=== PATIENT | female | born 1990 | race African-American/Black ===

== ENCOUNTER 2019-01-27 21:28 | Emergency (ER) | payer OTHER ==
[2019-01-27 21:46] VITALS: BP 99/72; PULSE 76; TEMP 97.8; BMI 22.8
--- NOTE | 2019-01-27 22:06 | PDOC ---
History of Present Illness - General Chief Complaint: Pain Stated Complaint: RIGHT ANKLE PAIN History Source: Patient Exam Limitations: No Limitations - History of Present Illness Initial Comments: 01/27/19 22:02 Patient is a 26-year-old female with history of Bartholin's cystectomy complaining of right ankle pain [employer]ER CARD ROOM. Patient states she was putting volleyball in the park and twisted her ankle and went down on her knee. Now has pain 9/10 worse with movement, unable to ambulate on her leg. PMD: Dr. Schroeder PMHX: Above PSOCHX: neg cig, drug, etoh ALL: NKDA GENERAL/CONSTITUTIONAL: No fever or chills. No weakness. No weight change. HEAD, EYES, EARS, NOSE AND THROAT: No change in vision. No ear pain or discharge. No sore throat. CARDIOVASCULAR: No chest pain or shortness of breath. RESPIRATORY: No cough, wheezing, or hemoptysis. GASTROINTESTINAL: No nausea, vomiting, diarrhea or constipation. No rectal bleeding. GENITOURINARY: No dysuria, frequency, or change in urination. MUSCULOSKELETAL: (+) joint or muscle swelling or pain. No neck or back pain. SKIN AND BREASTS: No rash or easy bruising. NEUROLOGIC: No headache, vertigo, loss of consciousness, or loss of sensation. PSYCHIATRIC: No depression or anxiety. ENDOCRINE: No increased thirst. No abnormal weight change. HEMATOLOGIC/LYMPHATIC: No anemia, easy bleeding, or history of blood clots. ALLERGIC/IMMUNOLOGIC: No hives or skin allergy. No latex allergy. GENERAL: The patient is awake, alert, and fully oriented, in no acute distress. HEAD: Normal with no signs of trauma. EYES: Pupils equal, round and reactive to light, extraocular movements intact, sclera anicteric, conjunctiva clear. ENT: Ears normal, nares patent, oropharynx clear without exudates. Moist mucous membranes. NECK: Normal range of motion, supple without lymphadenopathy, JVD, or masses. LUNGS: Breath sounds equal, clear to auscultation bilaterally. No wheezes, and no crackles. HEART: Regular rate and rhythm, normal S1 and S2 without murmur, rub. ABDOMEN: Soft, nontender, normoactive bowel sounds. No guarding, no rebound. No masses. EXTREMITIES: Decreased range of motion right ankle with tenderness over the lateral malleolus, mild edema. No clubbing or cyanosis. No cords, erythema, or tenderness, pulses are intact. NEUROLOGICAL: Cranial nerves II through XII grossly intact. Normal speech, normal gait. PSYCH: Normal mood, normal affect. SKIN: Warm, Dry, normal turgor, no rashes or lesions noted. Past History - Past Medical History Allergies/Adverse Reactions: Allergies Allergy/AdvReac Type Severity Reaction Status Date / Time No Known Allergies Allergy Verified 12/09/15 18:29 Home Medications: Ambulatory Orders Cyclobenzaprine HCl [Flexeril -] 10 mg PO HS #7 tablet 12/11/15 Ondansetron [Zofran Odt -] 4 mg SL TID #12 od.tablet 12/11/15 Asthma: No Cancer: No Cardiac Disorders: No Diabetes: No HTN: No Seizures: No Thyroid Disease: No - Suicide/Smoking/Psychosocial Hx Smoking History: Never smoked Have you smoked in the past 12 months: No Hx Alcohol Use: No Drug/Substance Use Hx: No Substance Use Type: None Hx Substance Use Treatment: No *Physical Exam - Vital Signs Last Vital Signs Temp Pulse Resp BP Pulse Ox 97.8 F 76 19 99/72 100 01/27/19 21:43 01/27/19 21:43 01/27/19 21:43 01/27/19 21:43 01/27/19 21:43 Procedures - Splinting Splint Location: Right: Ankle Pre-Proc Neuro Vasc Exam: normal Hand-Made Type: orthoglass Splint Type: Yes: Sugar Tong, Posterior Post-Proc Neuro Vasc Exam: normal Isaac Bandage: 6" Sling: No Complications: No Post splint xray: No Good repositioning: Yes ED Treatment Course - RADIOLOGY Radiology Studies Ordered: Category Date Time Status ANKLE & FOOT-RIGHT* [RAD] Stat Radiology 01/27/19 22:01 Ordered Medical Decision Making - Medical Decision Making 01/27/19 22:02 Patient is a 26-year-old female with history of Bartholin's cystectomy complaining of right ankle pain [employer] RO[employer]. Patient states she was putting volleyball in the park and twisted her ankle and went down on her knee. Now has pain 9/10 worse with movement, unable to ambulate on her leg. Pain meds offered symptoms consistent with ankle sprain versus fracture. Pain meds offered but declined at this time. Right ankle 01/28/19 01:03 Patient Full Name: SUREKHA SHINE Patient Accession No: [id number] Patient : 1990 Reason for Exam: FX Referring Physician: Patient Name: FÁTIMA IRBY THIS IS A PRELIMINARY REPORT FROM [facility] DATE OF SERVICE: 2019-01-27 22:04:53 IMAGES: 5 EXAM: X-RAY RIGHT ANKLE AND FOOT No acute fracture or dislocation. No radiopaque foreign body. THIS DOCUMENT HAS BEEN ELECTRONICALLY SIGNED Nina Johnston M.D. 01/28/2019 00:55 EST M.D. Please call [facility] [phone]) with questions. INTERPRETING RADIOLOGIST: Nina Johnston MD Electronically Signed: Jan 28, 2019 12:56AM EDT Patient Full Name: SUREKHA SHINE Patient Accession No: [id number] Patient : 1990 Reason for Exam: FX Referring Physician: Patient Name: FÁTIMA IRBY THIS IS A PRELIMINARY REPORT FROM [facility] DATE OF SERVICE: 2019-01-27 23:08:35 IMAGES: 4 EXAM: X-RAY RIGHT KNEE No acute fracture or dislocation. No radiopaque foreign body. THIS DOCUMENT HAS BEEN ELECTRONICALLY SIGNED Nina Johnsotn M.D. 01/28/2019 00:54 EST M.D. Please call [facility] [phone] with questions. INTERPRETING RADIOLOGIST: Nina Johnston MD Electronically Signed: Jan 28, 2019 12:55AM EDT Posterior splint applied 01/28/19 01:15 01/28/19 01:17 I discussed the physical exam findings, ancillary test results and final diagnoses with the patient. I answered all of the patient's questions. The patient was satisfied with the care received and felt comfortable with the discharge plan and treatment plan. The Patient agrees to follow up with the primary care physician within 24-72 hours. *DC/Admit/Observation/Transfer Diagnosis at time of Disposition: Ankle sprain Qualifiers: Encounter type: initial encounter Involved ligament of ankle: other ligament Laterality: right Qualified Code(s): S93.491A - Sprain of other ligament of right ankle, initial encounter - Discharge Dispostion Disposition: HOME Condition at time of disposition: Stable - Referrals Referrals: Zia Schroeder [Primary Care Provider] - Dago Weinstein MD [Staff Physician] - - Patient Instructions Printed Discharge Instructions: DI for Ankle Sprain Additional Instructions: Your Discharge Instructions: You must call primary care physician within 24 hours to arrange follow-up. Return to the Emergency Department with any new, persistent or worsening symptoms, for fever, chills, SOB, dizziness or any other concerning changes that may occur. Follow with orthopedics within a week you must keep the splint on until seen. - Post Discharge Activity Forms/Work/School Notes: Back to Work
== END 2019-01-27 22:00 | disposition home or self-care (01) ==
LOC: JERFT 21:28 → JER 21:28 → JERFT 22:00
PROC: 2W3QX1Z Immobilization of Right Lower Leg using Splint (ICD-10-PCS; principal; 2019-01-27)
DX: S93.491A Sprain of other ligament of right ankle, initial encounter (principal); W18.39XA Other fall on same level, initial encounter; Y93.68 Activity, volleyball (beach) (court); Y92.830 Public park as the place of occurrence of the external cause; Y99.8 Other external cause status
CPT/HCPCS: 73564-TC-RT-FY; 73610-TC-RT-FY; 73630-TC-RT-FY; 99281-25

== ENCOUNTER 2019-05-05 21:20 | Emergency (ER) | payer OTHER ==
--- NOTE | 2019-05-05 21:47 | PDOC ---
History of Present Illness - General Stated Complaint: PASSED OUT Time Seen by Provider: 05/05/19 21:24 History Source: Patient Exam Limitations: No Limitations - History of Present Illness Initial Comments: 05/05/19 21:47 Berlin Garcia is an otherwise healthy 29F presenting with a syncopal episode. 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 Was caught by mother in kitchen, did not hit head or have any injuries, was unresponsive for 5-10 minutes. First time this has happened, denies any personal or family history of cardiac issues. Has history of migraines, currently has YANES consistent with this, took an excedrin which is her normal management and it did not help. Reports dizziness and nausea and is unable to stand without assistance. Reports some abd pain as well, no vomiting. Denies chest pain, SOB, urinary sx, C/D, pain in extremities. NKDA No meds taken PSH Bartholin gland cyst excision x2 Denies alcohol/tobacco/drug use Past History - Past Medical History Allergies/Adverse Reactions: Allergies Allergy/AdvReac Type Severity Reaction Status Date / Time No Known Allergies Allergy Verified 05/05/19 22:02 Home Medications: Ambulatory Orders Cyclobenzaprine HCl [Flexeril -] 10 mg PO HS #7 tablet 12/11/15 Ondansetron [Zofran Odt -] 4 mg SL TID #12 od.tablet 12/11/15 Asthma: No Cancer: No Cardiac Disorders: No Diabetes: No HTN: No Seizures: No Thyroid Disease: No - Psycho Social/Smoking Cessation Hx Smoking History: Never smoked Have you smoked in the past 12 months: No Hx Alcohol Use: No Drug/Substance Use Hx: No Substance Use Type: None Hx Substance Use Treatment: No Review of Systems - Review of Systems Constitutional: Yes: Weakness. No: Chills, Fever HEENTM: No: Blurred Vision, Recent change in vision, Hearing Loss, Throat Pain Respiratory: No: Cough, Shortness of Breath, Wheezing Cardiac (ROS): Yes: Lightheadedness, Palpitations, Syncope. No: Chest Pain, Edema ABD/GI: Yes: Nausea. No: Constipated, Diarrhea, Vomiting : No: Burning, Dysuria, Discharge, Frequency, Flank Pain, Hematuria, Incontinence, Pain Musculoskeletal: Yes: Neck Pain (says she has neck pain with migraines). No: Back Pain Neurological: Yes: Headache, Unsteady Gait, Dizziness. No: Numbness, Paresthesia, Seizure, Tingling, Weakness Endocrine: No: Symptoms Reported Hematologic/Lymphatic: No: Symptoms Reported All Other Systems: Reviewed and Negative *Physical Exam - Physical Exam General Appearance: Yes: Nourished, Appropriately Dressed, Other (appears tired and sleepy). No: Apparent Distress HEENT: positive: EOMI, CATHI, Normal ENT Inspection, Normal Voice, Pharynx Normal. negative: Scleral Icterus (R), Scleral Icterus (L), Muffled/Hoarse voice Neck: positive: Trachea midline, Normal Thyroid, Supple. negative: Tender ( palpation of lower neck into shoulders does not elicit further pain), Rigid, Decreased range of motion, Lymphadenopathy (R), Lymphadenopathy (L) Respiratory/Chest: positive: Lungs Clear, Normal Breath Sounds. negative: Chest Tender, Respiratory Distress, Crackles, Rales, Rhonchi Cardiovascular: positive: Regular Rhythm, Regular Rate. negative: Murmur Gastrointestinal/Abdominal: positive: Normal Bowel Sounds, Tender (tender to palpation all quadrants), Flat, Soft. negative: Organomegaly, Pulsatile Mass, Distended, Guarding, Hernia Musculoskeletal: positive: Normal Inspection. negative: CVA Tenderness Extremity: positive: Normal Capillary Refill, Normal Inspection, Normal Range of Motion. negative: Tender Integumentary: positive: Normal Color, Dry, Warm Neurologic: positive: bit sharpener II-XII NML intact, Fully Oriented, Alert, Normal Mood/ Affect, Normal Response, Motor Strength 5/5, Other (CN 2-12 all intact, sensation equal and intact to LT all extremities, spontaneously moving all limbs , 5/5 strength all extremity muscle groups). negative: Numbness, Sensory Deficit, Confused ED Treatment Course - LABORATORY CBC & Chemistry Diagram: 05/05/19 22:35 05/05/19 22:35 Medical Decision Making - Medical Decision Making 05/05/19 21:47 Berlin Garcia is an otherwise healthy 29F presenting with a syncopal episode. Patient presentation is most concerning for a cardiac etiology for syncope given palpitations felt before syncope. Neuro etiology such as sz less likely but in differential, includes ICH vs. mass vs. vascular etiology. Patient works nights and reports exhaustion, is dehydrated on skin exam for IV placement and IV access difficult, most likely contributing factor to syncope. Will evaluate via: ECG CBC CMP CP serum preg UA/UC CXR CT head given new onset syncopal episode ECG reveals NSR, HR 70, QTc 453. Has new onset T wave inversion in V2. Likely needs tele/obs for further cardiac workup. 05/05/19 23:41 Patient advised that new ECG finding is abnormal and warrants further cardiac workup. Patient and family want to leave, advised that to do so would be against medical advice. Discussion at the bedside with patient and family. Patient has capacity to make medical decisions. I believe this patient is of sound mind and competent to refuse medical care. The patient is responding and asking questions appropriately. The patient is oriented to person, place and time. The patient is not psychotic, delusional, suicidal, homicidal or hallucinating. The patient demonstrates a normal mental capacity to make decisions regarding their healthcare. The patient is clinically sober and does not appear to be under the influence of any illicit drugs at this time. The patient has been advised of the risks, in layman terms, of leaving AMA which include, but are not limited to cardiac arrest, dehydration, bleeding, myocardial infarction, arrhythmia, stroke, delay in diagnosis and management, loss of current lifestyle, loss of functional status, multiorgan failure, coma, severe disability and . Alternatives have been offered - the patient remains steadfast in their wish to leave. The patient has been advised that should they change their mind they are welcome to return to this hospital, or any other, at any time. The patient understands that in no way does an AMA discharge mean that I do not want them to have the best medical care available. To this end, I have provided appropriate prescriptions, referrals, and discharge instructions. Said she would reconsider in the next hour. 05/06/19 00:22 CT head shows no acute intracranial abnormalities, masses, hemorrhage. 05/06/19 00:28 Patient wants to AMA. Gave strict return precautions and cards f/u. Currently stable and has all labs and studies WNL save for V2 T wave inversion on ECG. HEART score <3, stable for outpatient f/u, but our recommendation still for observation overnight. Discharge - Discharge Information Problems reviewed: Yes Clinical Impression/Diagnosis: Syncope and collapse Headache Qualifiers: Headache type: unspecified Headache chronicity pattern: acute headache Intractability: not intractable Qualified Code(s): R51 - Headache Condition: Stable - Follow up/Referral Referrals: Remi Andino MD [Staff Physician] - Hussain Glass MD [Staff Physician] - - Patient Discharge Instructions Patient Printed Discharge Instructions: DI for Syncope in Adults (Fainting) Additional Instructions: Today you were evaluated for a fainting episode. We got blood labs that do no show any signs of infection, heart attack, or electrolyte abnormalities. We gave you some IV fluids, Tylenol, and a medication called Reglan for your headache and nausea that gave you some relief. Your ECG shows an abnormality that cannot be explained given your normal blood labs, and we were concerned enough to recommend admission to the hospital overnight for more evaluation of your heart. However, you did not wish to stay, and are leaving against medical advice. We believe you are responding and asking questions appropriately. You are oriented to person, place and time. You are not psychotic, delusional, suicidal , homicidal or hallucinating. You demonstrate a normal mental capacity to make decisions regarding their healthcare. You are clinically sober and does not appear to be under the influence of any illicit drugs at this time. You have been advised of the risks, in layman terms, of leaving AMA which include, but are not limited to cardiac arrest, dehydration, bleeding, myocardial infarction , arrhythmia, stroke, delay in diagnosis and management, loss of current lifestyle, loss of functional status, multiorgan failure, coma, severe disability and . Alternatives have been offered - you remain steadfast in you wish to leave. You have been advised that should they change their mind they are welcome to return to this hospital, or any other, at any time. You understand that in no way does an AMA discharge mean that we do not want you to have the best medical care available. Please follow-up with your primary doctor in the next 3 days. We have included a referral to see a associate entertainment editor, please see them in the next week after discharge from the hospital. If you experience further episodes of fainting, chest pain, palpitations, fever, chills, changes in vision, abdominal pain, shortness of breath, or any other new or concerning symptoms, please return to the closest emergency room. - Post Discharge Activity
[2019-05-05] MEDS ORDERED: SODIUM CHLORIDE 1,000 ML IV STA (21:50)
[2019-05-05] MEDS ORDERED: ACETAMINOPHEN 1000 MG/100 ML VIAL (NON FORMULARY) IVPB ONE (21:50)
--- NOTE | 2019-05-05 22:05 | PDOC ---
Attending Attestation - Resident Resident Name: Cayden Nair - ED Attending Attestation I have performed the following: I have examined & evaluated the patient, The case was reviewed & discussed with the resident, I agree w/resident's findings & plan - HPI HPI: 05/05/19 23:24 Pt worked 8 hr overnight shift, ate a sandwich and juice. Then went to the gym x 1 hr and grocery shopping. She ate a sandwich and she went to sleep x 2 hrs ( 10:30am-12:30PM) then woke up with migraine and lay in dark for a few hrs. Then took shower and went to the kitchen around 7:30 and she passed out. Mom caught her. Pt reports feeling palpitations. . 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 However, she has only had this happen once before 2 yrs ago and she never had it checked out with a claims vice president - Physicial Exam PE: 05/05/19 23:36 NOrmal exam. Pt is afebrile. Agree with resident exam - Medical Decision Making 05/05/19 23:11 CBC is normal 05/05/19 23:36 chem normal card enz normal UA pending HCG negative CT head and CXR pending 05/06/19 00:35 Patient Name: FÁTIMA IRBY THIS IS A PRELIMINARY REPORT FROM [facility] DATE OF SERVICE: 2019-05-05 23:47:24 IMAGES: 131 EXAM: HEAD CT WITHOUT CONTRAST HISTORY: Syncope COMPARISON: None. FINDINGS: No acute intracranial abnormality. No hemorrhage. No visible infarct or mass. Osseous structures are intact. 05/06/19 01:18 Pt wants to AMA. Heart Score/ECG Review - ECG Intrepretation Rhythm: Regular Rhythm - [place]: Normal - P and [place] Prominent R with upright T in V1 (true posterior PA): No Delta Wave(s) Present: No WPW: No - ST and T Early Repolarization: No Non Specific ST-T Wave changes: No Flattened T Waves: No Prolonged Q-T Interval: No - ECG Impressions Normal ECG: Yes Non-specific ST Elevation: No Ischemic Changes: No
[2019-05-05 22:29] VITALS: BP 127/86; PULSE 82; TEMP 98; BMI 20.1
[2019-05-05] MEDS ORDERED: ACETAMINOPHEN INJECTION 100 ML IVPB ONE (22:44)
[2019-05-05 22:51] LABS: BASO % 0.5 % (0-2.0); EOS % 0.6 % (0-4.5); HEMATOCRIT 41.7 % (32.4-45.2); HEMOGLOBIN 13.9 GM/dL (10.7-15.3); MCH 29.6 pg (25.7-33.7); MCHC 33.4 g/dl (32.0-36.0); MEAN CELL VOLUME 88.7 fl (80-96); MEAN PLT VOLUME 8.8 fl (7.5-11.1); MONO % 6.5 % (3.8-10.2); NEUT % 58.4 % (42.8-82.8); PLATELET COUNT 304 K/MM3 (134-434); RBC 4.71 M/mm3 (3.60-5.2); RDW 12.7 % (11.6-15.6); WHITE BLOOD COUNT 5.2 K/mm3 (4.0-10.0)
[2019-05-05 23:24] LABS: ALBUMIN 4.3 g/dl (3.4-5.0); BILIRUBIN,TOTAL 0.3 mg/dL (0.2-1); BLOOD UREA NITROGEN 10.5 mg/dL (7-18); CALCIUM 9.4 mg/dL (8.5-10.1); CREATININE 0.7 mg/dL (0.55-1.3); POTASSIUM 3.9 mmol/L (3.5-5.1); TOT PROT 8.3 g/dl (6.4-8.2)
--- NOTE | 2019-05-06 10:16 | EKG ---
Test Reason : Blood Pressure : / mmHG Vent. Rate : 070 BPM Atrial Rate : 070 BPM P-R Int : 196 ms QRS Dur : 084 ms QT Int : 420 ms P-R-T Axes : 045 002 031 degrees QTc Int : 453 ms NORMAL SINUS RHYTHM NORMAL ECG WHEN COMPARED WITH ECG OF 07-JUN-2011 10:21, NO SIGNIFICANT CHANGE WAS FOUND Confirmed by KENNY LONG MD ([id number]) on 05/06/2019 10:15:56 AM Referred By: Confirmed By:KENNY LONG MD
== END 2019-05-06 00:30 | disposition home or self-care (01) ==
LOC: JER 21:20
PROC: 3E0337Z Introduction of Electrolytic and Water Balance Substance into Peripheral Vein, Percutaneous Approach (ICD-10-PCS; principal; 2019-05-05)
PROC: 3E033NZ Introduction of Analgesics, Hypnotics, Sedatives into Peripheral Vein, Percutaneous Approach (ICD-10-PCS; 2019-05-05)
DX: R55 Syncope and collapse (principal); R51 Headache; R94.31 Abnormal electrocardiogram [ECG] [EKG]
CPT/HCPCS: 36415; 70450-TC; 71045-TC-FY; 80053; 82550; 82553; 83690; 84484; 84703; 85025; 93005; 93010; 99282-25; J0131; J7030

== ENCOUNTER 2020-05-13 04:15 | Emergency (ER) | payer OTHER ==
--- OUTSIDE RECORDS SUMMARY | 2020-05-13 04:39 | XMS ---
:1990 Author Organization [facility] Support Name Relationship Address Phone EMEKA KANG MOTHER [address] [phone] [place] [address] [facility] Unavailable [address] [place] [address] [employer] Unavailable Unavailable Unavailable SUREKHA KANG MOTHER [address] [place] [address] Re-disclosure Warning The records that you are about to access may contain information from federally- assisted alcohol or drug abuse programs. If such information is present, then the following federally mandated warning applies: This information has been disclosed to you from records protected by federal confidentiality rules (42 CFR part 2). The federal rules prohibit you from making any further disclosure of this information unless further disclosure is expressly permitted by the written consent of the person to whom it pertains or as otherwise permitted by 42 CFR part 2. A general authorization for the release of medical or other information is NOT sufficient for this purpose. The Federal rules restrict any use of the information to criminally investigate or prosecute any alcohol or drug abuse patient.The records that you are about to access may contain highly sensitive health information, the redisclosure of which is protected by Article 27-F of the [place] State Public Health law. If you continue you may haveaccess to information: Regarding HIV / AIDS; Provided by facilities licensed or operated by the [facility] Office of Mental Health; or Provided by the [facility] Office for People With Developmental Disabilities. If such information is present, then the following [facility] mandated warning applies: This information has been disclosed to you from confidential records which are protected by state law. State law prohibits you from making any further disclosure of this information without the specific written consent of the person to whom it pertains, or as otherwise permitted by law. Any unauthorized further disclosure in violation of state law may result in a fine or nursing home sentence or both. A general authorization for the release of medical or other information is NOT sufficient authorization for further disclosure. Insurance Providers Payer name Policy type Policy ID Covered Covered constitution party's Policy P jus / Coverage constitution party ID relationship to [employer] Inf ormation type jeffries [facility] [id number] [facility]
[2020-05-13 05:07] VITALS: TEMP 98.2; BMI 25.7
[2020-05-13] MEDS ORDERED: SODIUM CHLORIDE 1,000 ML IV STA (05:08)
[2020-05-13] MEDS ORDERED: ACETAMINOPHEN 1000 MG/100 ML VIAL (NON FORMULARY) IVPB ONE (05:08)
[2020-05-13] MEDS ORDERED: METOCLOPRAMIDE HCL INJECTION 10 MG/2 ML VIAL IVPB ONE (05:08)
--- NOTE | 2020-05-13 05:08 | PDOC ---
History of Present Illness - General Chief Complaint: Migraine Headache Stated Complaint: MIGRANE X3 DAYS Time Seen by Provider: 05/13/20 04:59 History Source: Patient - History of Present Illness Initial Comments: 05/13/20 05:21 30-year-old female with history of headaches and migraines complaining of headaches for the last 3 days. Patient reports that this is similar to her previous migraine headache. Patient reports photophobia and phonophobia with frontal headache. Patient took Excedrin with no significant relief. Denies nausea, vomiting, dizziness, weakness, seizures Past medical history migraines Currently on Depo shot. Periods are irregular 05/13/20 05:55 Past History - Medical History Allergies/Adverse Reactions: Allergies Allergy/AdvReac Type Severity Reaction Status Date / Time No Known Allergies Allergy Verified 05/13/20 04:43 Home Medications: Ambulatory Orders Cyclobenzaprine HCl [Flexeril -] 10 mg PO HS #7 tablet 12/11/15 Ondansetron [Zofran Odt -] 4 mg SL TID #12 od.tablet 12/11/15 Asthma: No Cancer: No Cardiac Disorders: No COPD: No Diabetes: No HTN: No Seizures: No Thyroid Disease: No - Reproductive History Is Patient Now?: No - Psycho-Social/Smoking History Smoking History: Never smoked Have you smoked in the past 12 months: No Information on smoking cessation initiated: No - Substance Abuse Hx (Audit-C & DAST Scrn) How often the patient has a drink containing alcohol: Never Score: In Men: 4 or > Positive; In Women: 3 or > Positive: 0 Screen Result (Pos requires Nsg. Audit-10AR): Negative In the last yr the pt used illegal drug/Rx for NonMed reason: No Score: Yes response is considered Positive: 0 Screen Result (Positive result requires Nsg. DAST-10): Negative Review of Systems - Review of Systems Able to Perform ROS?: Yes Is the patient limited Bangl[place]hi proficient: No Constitutional: No: Symptoms Reported, See HPI, Chills, Diaphoresis, Fever, Loss of Appetite, Malaise, Night Sweats, Weakness, Weight Stable, Unintentional Wgt. Loss, Unexplained wgt Loss, Other Neurological: Yes: Headache. No: Symptoms reported, See HPI, Numbness, Paresthesia, Pre-Existing Deficit, Seizure, Tingling, Tremors, Weakness, Unsteady Gait, Ataxia, Dizziness, Other *Physical Exam - Vital Signs Last Vital Signs Temp Pulse Resp BP Pulse Ox 98.2 F 77 17 104/65 98 05/13/20 04:37 05/13/20 04:37 05/13/20 04:37 05/13/20 04:37 05/13/20 04:37 - Physical Exam General Appearance: Yes: Appropriately Dressed HEENT: positive: Normal ENT Inspection Respiratory/Chest: positive: Lungs Clear, Normal Breath Sounds Extremity: positive: Normal Capillary Refill Integumentary: positive: Normal Color, Dry, Warm Neurologic: positive: organ grinder II-XII NML intact, Fully Oriented, Alert, Normal Mood/Affect ED Progress Note - Progress Note Progress Note: 05/13/20 05:52 A: migraine headache P: IVF reglan benadryl tylenol reevaluate Discharge - Discharge Information Problems reviewed: Yes Clinical Impression/Diagnosis: Migraine headache Qualifiers: Migraine type: unspecified Status migrainosus presence: without status migrainosus Intractability: intractable Qualified Code(s): G43.919 - Migraine, unspecified, intractable, without status migrainosus Condition: Fair - Follow up/Referral Referrals: Adan Arce MD [Staff Physician] - Call tomorrow - Patient Discharge Instructions Patient Printed Discharge Instructions: Migraine -- Adult Additional Instructions: Drink plenty of fluids. You may take ibuprofen every 6 hours as needed for pain. It is very important that you follow-up with your neurologist as soon as possible. Return to the emergency room for any worsening symptoms - Post Discharge Activity Work/Back to School Note: Back to Work
[2020-05-13] MEDS ORDERED: ACETAMINOPHEN INJECTION 100 ML IVPB ONE (05:24)
[2020-05-13] MEDS ORDERED: METOCLOPRAMIDE HCL INJECTION 10 MG/2 ML VIAL ONE (05:24)
[2020-05-13 08:51] VITALS: BP 108/72; PULSE 71
== END 2020-05-13 08:19 | disposition home or self-care (01) ==
LOC: JER 04:15
PROC: 3E033NZ Introduction of Analgesics, Hypnotics, Sedatives into Peripheral Vein, Percutaneous Approach (ICD-10-PCS; principal; 2020-05-13)
PROC: 3E033GC Introduction of Other Therapeutic Substance into Peripheral Vein, Percutaneous Approach (ICD-10-PCS; 2020-05-13)
PROC: 3E0337Z Introduction of Electrolytic and Water Balance Substance into Peripheral Vein, Percutaneous Approach (ICD-10-PCS; 2020-05-13)
DX: G43.919 Migraine, unspecified, intractable, without status migrainosus (principal)
CPT/HCPCS: 99285-25; J0131